=== PATIENT | male | born 1975 | race Caucasian/White ===

== ENCOUNTER 2019-10-03 14:15 | Emergency (ER) | payer MEDICAID, SELFPAY ==
--- NOTE | 2019-10-03 14:15 | ECG_ITS ---
APPROVED REPORT Exam: Resting ECG HR:99 bpm ECG Measurements Heart Rate 99 AXES NE 138 P 82 QRSd 92 QRS 79 QT 342 T 69 QTc 438 <Conclusion> Sinus rhythm with marked sinus arrhythmia Otherwise normal ECG Electronically signed by : Aubrey Kelley, 10/05/2019 08:45:36
[2019-10-03 14:27] VITALS: BP 153/87; PULSE 87; RESP 18; TEMP 36.6; O2SAT 100; BMI 18.8; BMI 25.4
--- NOTE | 2019-10-03 14:28 | XR_ITS ---
PROCEDURE: XR CHEST PORTABLE CLINICAL HISTORY: chest pain Chest pain and shortness of breath, smoker COMPARISON: No exams were available for comparison FINDINGS: The cardiomediastinal silhouette and pulmonary vascularity are within normal limits. The lungs are clear without infiltrates, suspicious nodules, or pleural effusions. No acute bony abnormalities. IMPRESSION: No acute findings. Dictated by: Travis Galicia MD 10/03/2019 15:39 Electronically signed by Travis Galicia MD in [place] 10/03/2019 15:39
[2019-10-03 14:44] LABS: Appearance,Urine CLEAR (Clear); Bilirubin,Urine Negative (Negative); Blood, Urine 2+ (Negative); Color,Urine YELLOW (Yellow); Glucose,Urine (UA) Negative (Negative); Ketones,Urine 3+ (Negative); Leukocyte Esterase,Urine Negative (Negative); Microscopic, Urine URINE MICROSCOPIC (MICROSCOPIC); Nitrate,Urine Negative (Negative); PH,Urine 5.5 (5.0-8.5); Protein,Urine 2+ (Negative); Specific Gravity, Urine >= 1.030 (1.005-1.030); Urobilinogen,Urine 0.2 EU/dl (0.2)
[2019-10-03 15:00] LABS: Basophils % 0.5 % (0.1-2.0); Eosinophils # 0.1 K/mm3 (0.0-0.4); Eosinophils % 0.6 % (0.1-12.0); Hematocrit 44.3 % (42.0-52.0); Hemoglobin 15.4 g/dL (14.1-18.0); Lymphocytes # 0.5 K/mm3 (0.7-4.5); Lymphocytes % 5.3 % (10-50); Mean Corpuscular HGB Conc 34.8 g/dL (31.8-35.4); Mean Corpuscular Hemoglobin 38.3 pg (27.0-31.2); Mean Corpuscular Volume 110.1 fl (80-94); Mean Platelet Volume 9.4 fl (7.4-10.4); Monocytes # 0.3 K/mm3 (0.1-1.0); Monocytes % 2.9 % (1.7-9.3); Neutrophils # 7.8 K/mm3 (1.8-7.8); Neutrophils % 90.8 % (37.0-80.0); Red Blood Count 4.02 M/mm3 (4.60-6.20); Red Cell Distribution Width 14.4 % (11.5-17.5); White Blood Count 8.6 K/mm3 (4.8-10.8)
--- NOTE | 2019-10-03 15:02 | [facility].EDGENADL ---
ED Disposition Clinical Impression: Hypoglycemia, Dehydration Alcohol withdrawal Qualifiers: Complication of substance-induced condition: uncomplicated Qualified Code(s): F10.230 - Alcohol dependence with withdrawal, uncomplicated Disposition: Left Against Medical Advice Condition on Discharge: Fair Referrals: Richard Mina MD [Staff Physician] - 3 days - Critical Care Critical Care Time: Yes Attestation: On 10/03/19, the high probability of a clinically significant, sudden or life threatening deterioration of the following system(s) required my full and direct attention, intervention and personal management. The time I documented below is in addition to time spent performing reported procedures but includes the following listed in this critical care notation. 30 minutes critical care time Vital system(s) involved:: Circulatory Failure, Central Nervous System, Metabolic Failure, Renal Failure My critical care processes included: Assessment & monitoring of V/S, Initial and Re-exams, Data Review/Interpretation, Coordinating Care, Medication Orders and management, Documentation Medical Decision Making - Medical Records Medical records reviewed: Yes: I reviewed the patient's medical records. - Marcus Inquiry Pt receiving controlled substance: Yes Marcus was queried for this patient: No Risks and benefits of using a controlled substance: were discussed with pt by me Vital Signs: 10/03/19 14:27 10/03/19 15:43 10/03/19 16:33 Temperature 97.8 F Temperature Source Oral Pulse Rate [Right Radial] 87 108 H 98 H Respiratory Rate 18 22 Blood Pressure [Right Arm] 153/87 H 163/120 H 162/112 H Blood Pressure Mean [Right Arm] 109 134 128 Blood Pressure Source [Right Arm] Automatic Cuff Automatic Cuff Automatic Cuff Blood Pressure Position [Right Arm] Sitting Supine Sitting 02 Sat by Pulse Oximetry 100 97 99 Oxygen Delivery Method Room Air Room Air Room Air - Lab Data Lab Results 10/03/19 14:35: Urine Color Yellow, Urine Appearance Clear, Urine pH 5.5, Ur Specific [place] >= 1.030, Urine Protein 2+, Urine Glucose (UA) Negative, Urine Ketones 3+, Urine Blood 2+, Urine Nitrate Negative, Urine Bilirubin Negative, Urine Urobilinogen 0.2, Ur Leukocyte Esterase Negative, Urine RBC 3-5, Urine WBC Occasional, Ur Squamous Epith Cells Occasional, Urine Bacteria None, Hyaline Casts 5-10, Urine Mucus 1+ 10/03/19 14:35: Influenza Type A Ag Negative, Influenza Type B Ag Negative 10/03/19 14:35: Group A Strep Rapid Negative 10/03/19 14:35: Total Bilirubin 1.9 H, Direct Bilirubin 0.9 H, Conjugated Bilirubin 0.0, Indirect Bilirubin 1.0 H, Unconjugated Bilirubin 1.0, AST 182 H, ALT 71, Alkaline Phosphatase 139 H, Total Protein 7.4, Albumin 4.4 10/03/19 14:50: WBC 8.6, RBC 4.02 L, Hgb 15.4, Hct 44.3, MCV 110.1 H, MCH 38.3 H, MCHC 34.8, RDW 14.4, Plt Count 22 L*, MPV 9.4, Neut % (Auto) 90.8 H, Lymph % (Auto) 5.3 L, [place] % (Auto) 2.9, Eos % (Auto) 0.6, Baso % (Auto) 0.5, Neut # (Auto) 7.8, Lymph # (Auto) 0.5 L, [place] # (Auto) 0.3, Eos # (Auto) 0.1, Baso # (Auto) 0.0, Total Counted 100, Neutrophils % (Manual) 92 H, Lymphocytes % (Manual) 4 L, Monocytes % (Manual) 1 L, Metamyelocytes % 3.0 H, Platelet Estimate Marked dec, Anisocytosis 2+, Macrocytosis 2+ 10/03/19 14:50: Sodium 134 L, Potassium 4.1, Chloride 95 L, Carbon Dioxide 16 L, Anion Gap 27.1 H, BUN 9, Creatinine 0.50 L, Estimated Creat Clear 168, Estimated GFR 183, Est GFR ( Amer) 222, Glucose 54 L, Calcium 9.2, Troponin I < 0.01 10/03/19 14:50: Plasma/Serum Alcohol 21 H 10/03/19 15:30: Plt Count 17 L* Result diagrams: 10/03/19 15:30 10/03/19 14:50 Orders (Tests/Meds): ED MEDICATIONS Generic Name Dose Route Start Last Admin Trade Name Freq PRN Reason Stop Dose Admin Sodium Chloride 1,000 mls @ 999 mls/hr 10/03/19 15:45 10/03/19 15:54 Sod Chlor 0.9% 1000ml Bag IV 10/03/19 16:45 999 mls/hr .Q1H1M FADUMO Administration Sodium Chloride 1,000 mls @ 999 mls/hr 10/03/19 16:1
[2019-10-03 15:03] LABS: Platelet Count 22 K/mm3 (142-424)
[2019-10-03 15:04] LABS: Squamous Epithelial Cell,Urine Occasional #/hpf (0-5); WBC,Urine Occasional #/hpf (0-3)
--- NOTE | 2019-10-03 15:04 | PC.NURSE ---
critical platelets result reported to ELVIS MCCALL
[2019-10-03 15:05] LABS: MANUAL DIFFERENTIAL MANUAL DIFFERENTIAL (MANUAL DIFF)
[2019-10-03 15:05] LABS: Mucus,Urine 1+ /lpf
[2019-10-03 15:07] LABS: Strep Scrn Group A (Rapid) Negative (Negative)
[2019-10-03 15:14] LABS: Lymphocytes % 4 % (10-50); Monocytes % 1 % (2-9); Neutrophils % 92 % (42-76); Total Cells Counted 100
[2019-10-03 15:15] LABS: Platelet Estimate Marked Dec
[2019-10-03 15:16] LABS: Anisocytosis 2+; Macrocytosis 2+
[2019-10-03 15:27] LABS: Anion Gap 27.1 mEq/L (5-15); Blood Urea Nitrogen 9 mg/dl (9-20); Calcium 9.2 mg/dl (8.4-10.2); Carbon Dioxide 16 mmol/L (22.0-30.0); Chloride 95 mmol/L (98-107); Creatinine Clearance Estimated 168 mL/min (50-200); Estimated Glomerular Filt Rate 183 ml/min (>60); GFR (African American) 222 ML/MIN (>60); Glucose 54 mg/dl (74-100); Potassium 4.1 mmoL/L (3.5-5.1); Sodium 134 mmol/L (136-145)
--- NOTE | 2019-10-03 15:38 | PC.NURSE ---
called to check on status of chemistry and troponin lab results, spoke with Mary states she would check and call us back
[2019-10-03 15:43] VITALS: BP 163/120; PULSE 108; RESP 22; O2SAT 97
[2019-10-03 15:47] LABS: Troponin I < 0.01 ng/ml (0.00-0.034)
[2019-10-03 15:54] LABS: Platelet Count 17 K/mm3 (142-424)
[2019-10-03 15:56] LABS: Ethyl Alcohol 21 mg/dl (0-10)
[2019-10-03 15:57] LABS: Alanine Aminotransferase 71 U/L (12-78); Albumin Level 4.4 g/dl (3.5-5.0); Alkaline Phosphatase 139 U/L (38-126); Aspartate Amino Transferase 182 U/L (17-59); Bilirubin,Direct 0.9 mg/dl (0.0-0.4); Bilirubin,Total 1.9 mg/dl (0.2-1.3); Total Protein,Serum 7.4 g/dl (6.3-8.2)
--- NOTE | 2019-10-03 16:22 | PC.NURSE ---
Pt sitting up in bed eating at this time. No complaints.
[2019-10-03 16:33] VITALS: BP 162/112; PULSE 98; O2SAT 99
[2019-10-03 17:06] LABS: POC Glucose,Bedside 189 (70-110)
[2019-10-03 17:11] VITALS: BP 159/108; PULSE 96; RESP 18; TEMP 36.6; O2SAT 98
--- NOTE | 2019-10-03 17:15 | PC.NURSE ---
1700 at bedside speaking with pt. Pt reporting that he wants to leave hospital, MD advised against leaving AMA, education provided. Patient adamant that he is leaving hospital at this time. 1702 New order from MD for ativan 2mg IV now and then to have patient sign AMA form. 1704 ativan given, see EMAR for documentation. 1710 AMA form signed by pt with RN present to witness. Pt educated against leaving hospital and possible risk of leaving without further treatment, pt wants to sign out AMA. 1711 pt leaving ER at this time.
== END 2019-10-03 17:11 | disposition left against medical advice (07) ==
PROVIDERS: Emergency Provider Emergency Medicine
DX: F10.230 Alcohol dependence with withdrawal, uncomplicated (principal); E86.0 Dehydration
CPT/HCPCS: 36415; 71045; 80048; 80076; 81001; 82962; 84484; 85007; 85025; 85049; 87275; 87276; 87430; 93005; 96365; 96375; 96376; 99285